=== PATIENT | male | born 1950 | race Caucasian/White ===

== ENCOUNTER 2018-02-25 20:59 | Emergency (ER) | payer OTHER ==
[~2018-02-25] VITALS: Ht 187.9 cm; Wt 105.7 kg
[2018-02-25 21:51] LABS: BASO # 0.1 10*3/uL (0.0-0.1); BASO % 0.7 % (0.0-1.0); EOS # 0.2 10*3/uL (0.0-0.4); EOS % 2.8 % (1.0-4.0); HEMATOCRIT 45.4 % (42.0-52.0); HEMOGLOBIN 14.7 g/dl (14.0-18.0); LYMPH # 1.3 10*3/uL (1.3-4.4); LYMPH % 18.9 % (27.0-41.0); MEAN CELL VOLUME 93.2 fl (80.0-94.0); MEAN CORPUSCULAR HGB 30.2 pg (27.0-31.0); MEAN CORPUSCULAR HGB CONC 32.4 g/dl (33.0-37.0); MONO # 0.7 10*3/uL (0.1-1.0); NEUT # 4.6 10*3/uL (2.3-7.9); NEUT % 67.2 % (47.0-73.0); PLATELET COUNT AUTOMATED 162 10*3/uL (130-400); RED BLOOD COUNT 4.87 10*6/uL (4.50-5.90); RED CELL DISTRI WIDTH 12.5 % (0-14.5); WHITE BLOOD COUNT 6.8 10*3/uL (4.8-10.8)
[2018-02-25 21:56] LABS: BILIRUBIN NEGATIVE (NEGATIVE); BLOOD 3+ (NEGATIVE); CLARITY CLEAR (CLEAR); COLOR YELLOW (YELLOW); GLUCOSE NEGATIVE (NEGATIVE); KETONE NEGATIVE (NEGATIVE); LEUKO ESTERASE NEGATIVE (NEGATIVE); NITRITE NEGATIVE (NEGATIVE); PH 5.5 (5.0-9.0); SPECIFIC GRAVITY <= 1.005 (1.005-1.030); UROBILINOGEN 0.2 E.U./dl (0.2-1.0)
[2018-02-25 22:00] LABS: WBC 0-2 wbc/hpf (0-5)
[2018-02-25 22:01] LABS: BACTERIA TRACE; EPITHELIAL CELLS 0-2
[2018-02-25 22:06] LABS: ALBUMIN 3.9 gm/dl (3.1-4.5); CREATININE 1.49 mg/dL (0.70-1.30); POTASSIUM 4.5 mmol/L (3.5-5.1); TOTAL PROTEIN 6.9 gm/dL (6.4-8.2)
== END 2018-02-25 22:25 | disposition home or self-care (01) ==
LOC: ED 20:59
PROVIDERS: Student in an Organized Health Care Education/Training Program
DX: R33.9 Retention of urine, unspecified (principal)